=== PATIENT | female | born 1995 | race African-American/Black ===

== ENCOUNTER 2016-09-07 21:51 | Emergency (ER) | payer OTHER ==
[~2016-09-07 21:51] MED LIST: VENTAER INH; ZOFR4TAB3 SL
[2016-09-07 21:54] VITALS: BP 151/95; PULSE 86; RESP 16; TEMP 98.4; O2SAT 96
== END 2016-09-07 23:59 | disposition left against medical advice (07) ==
LOC: NED 21:51
DX: R68.89 Other general symptoms and signs (principal)
CPT/HCPCS: 99281

== ENCOUNTER 2016-09-10 23:09 | Emergency (ER) | payer OTHER ==
[~2016-09-10] VITALS: Ht 160 cm; Wt 98.3 kg
[2016-09-10 23:10] VITALS: BP 133/83; PULSE 96; RESP 16; TEMP 98.7; O2SAT 100
[2016-09-11] MEDS ORDERED: SODIUM CHLORIDE 0.9% FLUSH 10 ML FLUSH IV FLUSH PRN (01:00)
[2016-09-11] MEDS ORDERED: DICYCLOMINE HCL 20 MG/2 ML VIAL IM ONE (01:00)
[2016-09-11 01:11] LABS: BASOPHIL # 0.1 TH/MM3 (0-0.2); EOSINOPHIL # 0.2 TH/MM3 (0-0.4); EOSINOPHIL % 3.3 % (0.0-4.0); HEMATOCRIT 40.5 % (35.0-46.0); HEMO FLAGS DIFF FINAL; LYMPHOCYTE # 3.4 TH/MM3 (1.0-4.8); MEAN CELL VOLUME 78.4 FL (80.0-100.0); MEAN CORPUSCULAR HEMOGLOBIN 25.9 PG (27.0-34.0); MEAN CORPUSCULAR HGB CONC 33.1 % (32.0-36.0); MONO % 6.9 % (0.0-8.0); NEUT % 32.8 % (16.0-70.0); PLATELET COUNT 222 TH/MM3 (150-450); RED BLOOD COUNT 5.17 MIL/MM3 (4.00-5.30); RED CELL DISTRIBUTION WIDTH 14.8 % (11.6-17.2); WHITE BLOOD COUNT 6.1 TH/MM3 (4.0-11.0)
--- NOTE | 2016-09-11 01:17 | PD ---
HPI Chief Complaint: Chest Pain Time Seen by Provider: 00:54 Travel History International Travel<30 days: No Contact w/Intl Traveler<30days: No Traveled to known affect area: No History of Present Illness HPI This is a 21-year-old female who presents today with complaints of abdominal pain 2 days per patient also reports loose stools 2 days. She denies any fevers, chills. She denies any upper abdominal pain. She does give history that she has a crampy pain after eating. There is no dysuria, urgency. There is no vaginal discharge. She states she was concerned she may be however her urine test here is negative. PFSH Past Medical History Hx Anticoagulant Therapy: No Anemia: Yes Asthma: Yes Cardiovascular Problems: No Chemotherapy: No Cerebrovascular Accident: No Developmental Delay: No Diabetes: No Diminished Hearing: No Gastrointestinal Disorders: No Genitourinary: No Hypertension: Yes Musculoskeletal: No Neurologic: No Psychiatric: No Respiratory: Yes (Asthma) Immunizations Current: Yes Sickle Cell Disease: No Sleep Apnea: No PNEUMOCCOCAL Vaccine (Year): 1 ?: Unknown LMP: unknown : 3 Para: 2 Miscarriage: 0 : 0 Past Surgical History Section: Yes (x2) Gynecologic Surgery: Yes ( JULY 2012) Hysterectomy: No Social History Alcohol Use: No Tobacco Use: No Substance Use: No Allergies-Medications (Allergen,Severity, Reaction): Coded Allergies: No Known Allergies (Verified , 12/22/15) Reported Meds & Prescriptions Reported Meds & Active Scripts Active Macrobid (Nitrofurantoin Monohydrate Macrocrystals) 100 Mg Capsule 100 Mg PO BID Ventolin Hfa 18 GM Inh (Albuterol Sulfate) 90 Mcg/Act Aer 2 Puff INH Q4-6H PRN Review of Systems Except as stated in HPI: all other systems reviewed are Neg HENT: No: Headaches, Vertigo, Lightheadedness Cardiovascular: No: Chest Pain or Discomfort, Palpitations Respiratory: No: Cough, Shortness of Breath Gastrointestinal: Positive: Nausea, Diarrhea, Abdominal Pain (loose stools 2 episodes infraumbilical), No: Vomiting, Constipation Genitourinary: No: Frequency, Dysuria, Discharge, Vaginal Bleeding Musculoskeletal: No: Weakness, Pain Neurologic: No: Weakness, Dizziness Physical Exam Narrative GENERAL: Well-nourished, well-developed patient, in no acute respiratory distress. SKIN: Focused skin assessment warm/dry. HEAD: Normocephalic/atraumatic. EYES: No scleral icterus. No injection or drainage. NECK: Supple, trachea midline. No JVD or lymphadenopathy. CARDIOVASCULAR: Regular rate and rhythm without murmurs, gallops, or rubs. RESPIRATORY: Breath sounds equal bilaterally. No accessory muscle use. GASTROINTESTINAL: Abdomen soft, nontender on my examination. There is no distention. No pulsatile masses. MUSCULOSKELETAL: No cyanosis, or edema. NEUROLOGICAL: Awake and alert. Cranial nerves II through XII intact. Motor grossly within normal limits. Five out of 5 muscle strength in all muscle groups. Normal speech. Data Data Last Documented VS Vital Signs Date Time Temp Pulse Resp B/P Pulse Ox O2 Delivery O2 Flow Rate FiO2 09/10/16 23:10 98.7 96 16 133/83 100 Room Air Orders Complete Blood Count With Diff (09/11/16 00:54) Comprehensive Metabolic Panel (09/11/16 00:54) Lipase (09/11/16 00:54) Urinalysis - C+S If Indicated (09/11/16 00:54) Iv Access Insert/Monitor (09/11/16 00:54) Ecg Monitoring (09/11/16 00:54) Oximetry (09/11/16 00:54) Sodium Chloride 0.9% Flush (Ns Flush) (09/11/16 01:00) Dicyclomine Inj (Bentyl Inj) (09/11/16 01:00) Ed Urine Pregnancytest Poc (09/11/16 00:54) Urine Culture (09/11/16 01:00) Labs Laboratory Tests Test 09/11/16 01:00 White Blood Count 6.1 TH/MM3 Red Blood Count 5.17 MIL/MM3 Hemoglobin 13.4 GM/DL Hematocrit 40.5 % Mean Corpuscular Volume 78.4 FL Mean Corpuscular Hemoglobin 25.9 PG Mean Corpuscular Hemoglobin 33.1 % Concent Red Cell Distribution Width 14.8 % Platelet Count 222 TH/MM3 Mean Platelet Volume 8.8 FL Neutrophils (%) (Auto) 32.8 % Lymphocytes (%) (Auto) 56.0 % Monocytes (%) (Auto) 6.9 % Eosinophils (%) (Auto) 3.3 % Basophils (%) (Auto) 1.0 % Neutrophils # (Auto) 2.0 TH/MM3 Lymphocytes # (Auto) 3.4 TH/MM3 Monocytes # (Auto) 0.4 TH/MM3 Eosinophils # (Auto) 0.2 TH/MM3 Basophils # (Auto) 0.1 TH/MM3 CBC Comment DIFF FINAL Differential Comment Urine Color YELLOW Urine Turbidity HAZY Urine pH 6.0 Urine Specific [place] 1.034 Urine Protein 30 mg/dL Urine Glucose (UA) NEG mg/dL Urine Ketones NEG mg/dL Urine Occult Blood NEG Urine Nitrite NEG Urine Bilirubin NEG Urine Urobilinogen 4.0 MG/DL Urine Leukocyte Esterase LARGE Urine RBC 4 /hpf Urine WBC 33 /hpf Urine Squamous Epithelial 6 /hpf Cells Urine Bacteria RARE /hpf Urine Granular Casts 2 /lpf Urine Mucus FEW /lpf Microscopic Urinalysis Comment CULTURE INDICATED Sodium Level 138 MEQ/L Potassium Level 3.9 MEQ/L Chloride Level 103 MEQ/L Carbon Dioxide Level 27.2 MEQ/L Anion Gap 8 MEQ/L Blood Urea Nitrogen 10 MG/DL Creatinine 0.86 MG/DL Estimat Glomerular Filtration 101 ML/MIN Rate Random Glucose 90 MG/DL Calcium Level 9.3 MG/DL Total Bilirubin 0.5 MG/DL Aspartate Amino Transf 19 U/L (AST/SGOT) Alanine Aminotransferase 23 U/L (ALT/SGPT) Alkaline Phosphatase 80 U/L Total Protein 7.8 GM/DL Albumin 4.0 GM/DL Lipase 220 U/L [facility] Medical Decision Making Medical Screen Exam Complete: Yes Emergency Medical Condition: Yes Differential Diagnosis Gastroenteritis versus cystitis versus cholecystitis Narrative Course 21-year-old female presents today with points of lower bowel pain. Patient denied any dysuria urgency or frequency. Patient's urinalysis was positive for UTI. The rest of her labs appear within normal limits. The patient had a soft abdominal exam on my exam. She'll be discharged with a prescription for Macrobid. She'll also be instructed to have a bland diet until she feels better. Diagnosis Primary Impression: Urinary tract infection Additional Instructions: [place] diet, advance as tolerated. Med/Other Pt SpecificInfo: Prescription(s) given Scripts Nitrofurantoin Monohydrate Macrocrystals (Macrobid)100 Mg [id number] Mg PO BID #14 CAP Ref 0 Prov:Gaudencio Snow MD 09/11/16 Disposition: 01 DISCHARGE HOME Condition: Stable Gaudencio Snow MD Sep 11, 2016 01:17
[2016-09-11 01:21] LABS: BACTERIA, URINE RARE /hpf; BLOOD, URINE NEG (NEG); COMMENT (UR) CULTURE INDICATED; CULTURE IF INDICATED CULTURE INDICATED; GLUCOSE,URINE NEG (NEG); GRANULAR CAST, URINE 2 /lpf; KETONE, URINE NEG (NEG); MUCUS URINE FEW /lpf (OCC); NITRITE,URINE NEG (NEG); SQUAMOUS EPITHELIAL CELL URINE 6 /hpf (0-5); URINE COLOR YELLOW (YELLW/STRAW)
[2016-09-11 01:45] LABS: ALT (GPT) 23 U/L (10-53); ANION GAP 8 MEQ/L (5-15); AST (GOT) 19 U/L (15-37); BICARBONATE 27.2 MEQ/L (21.0-32.0); BLOOD UREA NITROGEN 10 MG/DL (7-18); CHLORIDE 103 MEQ/L (98-107); GLOMERULAR FILTRATION RATE 101 ML/MIN (>89); POTASSIUM 3.9 MEQ/L (3.5-5.1); SODIUM (NA) 138 MEQ/L (136-145)
[2016-09-11 01:47] LABS: ALKALINE PHOSPHATASE 80 U/L (45-117); TOTAL BILIRUBIN ADULT 0.5 MG/DL (0.2-1.0)
[2016-09-11] MEDS ORDERED: MACR100C2 PO (03:20)
== END 2016-09-11 04:08 | disposition home or self-care (01) ==
LOC: NEPE 23:09
DX: N39.0 Urinary tract infection, site not specified (principal); R11.0 Nausea; R19.7 Diarrhea, unspecified; D64.9 Anemia, unspecified; J45.909 Unspecified asthma, uncomplicated; I10 Essential (primary) hypertension; Z79.899 Other long term (current) drug therapy
CPT/HCPCS: 80053; 81001; 83690; 84703; 85025; 87086; 96372; 99284; J0500

== ENCOUNTER 2016-09-26 21:07 | Emergency (ER) | payer OTHER ==
[~2016-09-26] VITALS: Ht 160 cm; Wt 100.0 kg
[~2016-09-26 21:07] MED LIST changes: +MACR100C2 PO; -ZOFR4TAB3 SL
[2016-09-26 21:08] VITALS: BP 163/100; PULSE 98; RESP 16; TEMP 99; O2SAT 98
[2016-09-26] MEDS ORDERED: TRAM50TA PO (22:32)
[2016-09-26] MEDS ORDERED: ACYC800T PO (22:32)
--- NOTE | 2016-09-26 22:39 | PD ---
HPI Chief Complaint: Injury Time Seen by Provider: 22:20 Travel History International Travel<30 days: No Contact w/Intl Traveler<30days: No Traveled to known affect area: No History of Present Illness HPI The patient was seen and examined in the presence of the nurse. This patient complains of painful genital lesions. Denies fever or vaginal discharge. Does have history of STD. She is sexually active not using protection. No pelvic pain or vaginal bleeding. Symptoms severity is mild to moderate PFSH Past Medical History Hx Anticoagulant Therapy: No Anemia: Yes Asthma: Yes Cardiovascular Problems: No Chemotherapy: No Cerebrovascular Accident: No Developmental Delay: No Diabetes: No Diminished Hearing: No Gastrointestinal Disorders: No Genitourinary: No Hypertension: Yes Musculoskeletal: No Neurologic: No Psychiatric: No Immunizations Current: Yes Sickle Cell Disease: No Sleep Apnea: No PNEUMOCCOCAL Vaccine (Year): 1 ?: Unknown LMP: 08/13/16 : 3 Para: 2 Miscarriage: 0 : 0 Past Surgical History Section: Yes (x2) Gynecologic Surgery: Yes ( JULY 2012) Hysterectomy: No Social History Alcohol Use: No Tobacco Use: No Substance Use: No Allergies-Medications (Allergen,Severity, Reaction): Coded Allergies: No Known Allergies (Verified , 12/22/15) Reported Meds & Prescriptions Reported Meds & Active Scripts Active Macrobid (Nitrofurantoin Monohydrate Macrocrystals) 100 Mg Capsule 100 Mg PO BID Ventolin Hfa 18 GM Inh (Albuterol Sulfate) 90 Mcg/Act Aer 2 Puff INH Q4-6H PRN Review of Systems General / Constitutional: No: Fever HENT: No: Headaches Cardiovascular: No: Chest Pain or Discomfort Respiratory: No: Cough Physical Exam Narrative GASTROINTESTINAL: Abdomen soft, non-tender, nondistended. Positive bowel sounds. No hepato-splenomegaly, or palpable masses. No guarding. : External genitalia reveal several vesicular and ulcerative lesions on erythematous base No bleeding or discharge externally seen SKIN: Focused skin assessment reveals no rash or ulcers beyond the genital region. Skin is warm and dry. Palpation shows no induration or nodules. Data Data Last Documented VS Vital Signs Date Time Temp Pulse Resp B/P Pulse Ox O2 Delivery O2 Flow Rate FiO2 09/26/16 21:08 99.0 98 16 163/100 98 Room Air MDM Medical Decision Making Medical Screen Exam Complete: Yes Emergency Medical Condition: Yes Medical Record Reviewed: Yes Differential Diagnosis HSV, vaginitis, Narrative Course I have reviewed the patient's electronic medical record. Patient has had 2 C- sections prior Urine is positive Clinical exam suggests herpes so I prescribed one week of acyclovir Tylenol recommend for pain and given her status Should follow with [facility] for evaluation Of note I initially prescribed some tramadol but I have given her that prescription since she has been found to be Is not known how far along she is Diagnosis Primary Impression: HSV (herpes simplex virus) infection Additional Impression: Qualified Code: Z3A.10 - 10 weeks gestation of Additional Instructions: Follow-up with [facility] Med/Other Pt SpecificInfo: Prescription(s) given Scripts Tramadol 50 Mg Tab50 Mg PO Q6H PRN (PAIN) #20 TAB Ref 0 Prov:Mario Barillas MD 09/26/16 Acyclovir 800 Mg [id number] Mg PO TID #21 TAB Ref 0 Prov:Mario Barillas MD 09/26/16 Disposition: 01 DISCHARGE HOME Condition: Stable Mario Barillas MD Sep 26, 2016 22:39
== END 2016-09-26 22:55 | disposition home or self-care (01) ==
LOC: NEPD 21:07
DX: B00.9 Herpesviral infection, unspecified (principal); O26.891 Other specified pregnancy related conditions, first trimester; O16.1 Unspecified maternal hypertension, first trimester; I10 Essential (primary) hypertension; Z3A.10 10 weeks gestation of pregnancy
CPT/HCPCS: 84703; 99283

== ENCOUNTER 2016-10-02 21:51 | Emergency (ER) | payer OTHER ==
[~2016-10-02] VITALS: Ht 160 cm; Wt 90.0 kg
[~2016-10-02 21:51] MED LIST changes: +ACYC800T PO; +TRAM50TA PO
[2016-10-02 22:02] VITALS: BP 142/94; PULSE 91; RESP 15; TEMP 98.7; O2SAT 98
--- NOTE | 2016-10-02 23:16 | PD ---
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 She states that she is passing clots and having lower back discomfort. She also has been having nausea and vomiting. She denies any fevers, dysuria, or any other symptoms. Modifying Factors: None Associated Signs & Symptoms: and vaginal bleeding Risk Factors: None PFSH Past Medical History Hx Anticoagulant Therapy: No Anemia: Yes Asthma: Yes Cardiovascular Problems: No Chemotherapy: No Cerebrovascular Accident: No Developmental Delay: No Diabetes: No Diminished Hearing: No Gastrointestinal Disorders: No Genitourinary: No Hypertension: Yes Musculoskeletal: No Neurologic: No Psychiatric: No Immunizations Current: Yes Sickle Cell Disease: No Sleep Apnea: No Tetanus Vaccination: Unknown PNEUMOCCOCAL Vaccine (Year): 1 ?: LMP: 07/09/2016 : 4 Para: 3 Miscarriage: 0 : 0 Past Surgical History Section: Yes (x2) Gynecologic Surgery: Yes ( JULY 2012) Hysterectomy: No Social History Alcohol Use: No Tobacco Use: No Substance Use: No Allergies-Medications (Allergen,Severity, Reaction): Coded Allergies: No Known Allergies (Verified , 12/22/15) Reported Meds & Prescriptions Reported Meds & Active Scripts Active Acyclovir 800 Mg Tab 800 Mg PO TID Macrobid (Nitrofurantoin Monohydrate Macrocrystals) 100 Mg Capsule 100 Mg PO BID Ventolin Hfa 18 GM Inh (Albuterol Sulfate) 90 Mcg/Act Aer 2 Puff INH Q4-6H PRN Review of Systems Except as stated in HPI: all other systems reviewed are Neg Physical Exam Narrative GENERAL: Well-developed young -[place] female patient currently in mild distress. Awake and oriented 3. SKIN: Focused skin assessment warm/dry. HEAD: Atraumatic. Normocephalic. EYES: Pupils equal and round. No scleral icterus. No injection or drainage. ENT: No nasal bleeding or discharge. Mucous membranes pink and moist. NECK: Trachea midline. No JVD. CARDIOVASCULAR: Regular rate and rhythm. No murmur appreciated. RESPIRATORY: No accessory muscle use. Clear to auscultation. Breath sounds equal bilaterally. GASTROINTESTINAL: Abdomen soft, non-tender, nondistended. Hepatic and splenic margins not palpable. MUSCULOSKELETAL: No obvious deformities. No clubbing. No cyanosis. No edema. NEUROLOGICAL: Awake and alert. No obvious cranial nerve deficits. Motor grossly within normal limits. Normal speech. PSYCHIATRIC: Appropriate mood and affect; insight and judgment normal. Data Data Last Documented VS Vital Signs Date Time Temp Pulse Resp B/P (MAP) Pulse Ox O2 Delivery O2 Flow Rate FiO2 10/02/16 22:02 98.7 91 15 142/94 (110) 98 Room Air Orders Orders Beta Hcg (Quant/Titer) (10/02/16 23:10) Complete Blood Count With Diff (10/02/16 23:10) Comprehensive Metabolic Panel (10/02/16 23:10) Complete Rh (10/02/16 23:10) Urinalysis - C+S If Indicated (10/02/16 23:10) Urine Culture (10/02/16 23:35) Us Pelvis (Ques Pr/Ect)W Trans (10/03/16 23:13) Labs Laboratory Tests Test 10/02/16 23:35 10/02/16 23:45 Urine Color YELLOW Urine Turbidity HAZY Urine pH 7.0 Urine Specific [place] 1.023 Urine Protein TRACE mg/dL Urine Glucose (UA) NEG mg/dL Urine Ketones NEG mg/dL Urine Occult Blood NEG Urine Nitrite NEG Urine Bilirubin NEG Urine Urobilinogen 2.0 MG/DL Urine Leukocyte Esterase MOD Urine RBC 2 /hpf Urine WBC 18 /hpf Urine Squamous Epithelial Cells 5 /hpf Urine Bacteria RARE /hpf Microscopic Urinalysis Comment CULTURE INDICATED White Blood Count 6.0 TH/MM3 Red Blood Count 4.82 MIL/MM3 Hemoglobin 11.9 GM/DL Hematocrit 38.1 % Mean Corpuscular Volume 78.9 FL Mean Corpuscular Hemoglobin 24.8 PG Mean Corpuscular Hemoglobin Concent 31.4 % Red Cell Distribution Width 14.4 % Platelet Count 214 TH/MM3 Mean Platelet Volume 8.6 FL Neutrophils (%) (Auto) 35.6 % Lymphocytes (%) (Auto) 54.8 % Monocytes (%) (Auto) 5.7 % Eosinophils (%) (Auto) 3.2 % Basophils (%) (Auto) 0.7 % Neutrophils # (Auto) 2.1 TH/MM3 Lymphocytes # (Auto) 3.3 TH/MM3 Monocytes # (Auto) 0.3 TH/MM3 Eosinophils # (Auto) 0.2 TH/MM3 Basophils # (Auto) 0.0 TH/MM3 CBC Comment DIFF FINAL Differential Comment Blood Urea Nitrogen 8 MG/DL Creatinine 0.70 MG/DL Random Glucose 90 MG/DL Total Protein 7.2 GM/DL Albumin 3.7 GM/DL Calcium Level 8.8 MG/DL Alkaline Phosphatase 84 U/L Aspartate Amino Transf (AST/SGOT) 15 U/L Alanine Aminotransferase (ALT/SGPT) 20 U/L Total Bilirubin 0.4 MG/DL Sodium Level 140 MEQ/L Potassium Level 3.8 MEQ/L Chloride Level 107 MEQ/L Carbon Dioxide Level 26.6 MEQ/L Anion Gap 6 MEQ/L Estimat Glomerular Filtration Rate 128 ML/MIN Human Chorionic Gonadotropin, Quant 1598 MIU/ML MDM Medical Decision Making Medical Screen Exam Complete: Yes Emergency Medical Condition: Yes Medical Record Reviewed: Yes Interpretation(s) Laboratory Tests Test 10/02/16 23:35 10/02/16 23:45 Urine Turbidity HAZY (CLEAR) Urine Leukocyte Esterase MOD (NEG) Urine WBC 18 /hpf (0-5) Urine Bacteria RARE /hpf (NONE) Mean Corpuscular Volume 78.9 FL (80.0-100.0) Mean Corpuscular Hemoglobin 24.8 PG (27.0-34.0) Mean Corpuscular Hemoglobin Concent 31.4 % (32.0-36.0) Lymphocytes (%) (Auto) 54.8 % (9.0-44.0) Human Chorionic Gonadotropin, Quant 1598 MIU/ML (0-5) Differential Diagnosis Vaginal bleeding: Threatened AB versus ectopic versus menorrhagia Narrative Course Lab work shows hCG of 1500. She states that she just had her menses this past month. She has an ultrasound with possible early within the uterus although it is fairly early. Rh+. At this point, my plan would be to release her with follow-up to [facility] RN in 2 days for further evaluation with ultrasound and hCG. Return for any worsening in bleeding, pain, and as needed. The plan has been discussed with her and she states understanding. Diagnosis Primary Impression: Threatened in early Referrals: Ismael Swan MD 2 days Disposition: 01 DISCHARGE HOME Condition: Stable Janel Farr MD Oct 02, 2016 23:16
[2016-10-03 00:06] LABS: AUTOMATED NEUTROPHIL # 2.1 TH/MM3 (1.8-7.7); BASOPHIL % 0.7 % (0.0-2.0); EOSINOPHIL # 0.2 TH/MM3 (0-0.4); EOSINOPHIL % 3.2 % (0.0-4.0); HEMATOCRIT 38.1 % (35.0-46.0); HEMO FLAGS DIFF FINAL; LYMPH % 54.8 % (9.0-44.0); LYMPHOCYTE # 3.3 TH/MM3 (1.0-4.8); MEAN CELL VOLUME 78.9 FL (80.0-100.0); MEAN CORPUSCULAR HEMOGLOBIN 24.8 PG (27.0-34.0); MEAN CORPUSCULAR HGB CONC 31.4 % (32.0-36.0); MONO % 5.7 % (0.0-8.0); NEUT % 35.6 % (16.0-70.0); PLATELET COUNT 214 TH/MM3 (150-450); RED BLOOD COUNT 4.82 MIL/MM3 (4.00-5.30); RED CELL DISTRIBUTION WIDTH 14.4 % (11.6-17.2)
[2016-10-03 00:16] LABS: ALT (GPT) 20 U/L (10-53); ANION GAP 6 MEQ/L (5-15); AST (GOT) 15 U/L (15-37); BICARBONATE 26.6 MEQ/L (21.0-32.0); BLOOD UREA NITROGEN 8 MG/DL (7-18); CHLORIDE 107 MEQ/L (98-107); GLOMERULAR FILTRATION RATE 128 ML/MIN (>89); POTASSIUM 3.8 MEQ/L (3.5-5.1); SODIUM (NA) 140 MEQ/L (136-145)
[2016-10-03 00:17] LABS: BACTERIA, URINE RARE /hpf; BLOOD, URINE NEG (NEG); COMMENT (UR) CULTURE INDICATED; CULTURE IF INDICATED CULTURE INDICATED; GLUCOSE,URINE NEG (NEG); KETONE, URINE NEG (NEG); NITRITE,URINE NEG (NEG); SQUAMOUS EPITHELIAL CELL URINE 5 /hpf (0-5); URINE COLOR YELLOW (YELLW/STRAW)
[2016-10-03 00:33] LABS: ALKALINE PHOSPHATASE 84 U/L (45-117); BETA HCG QUANT 1598 MIU/ML (0-5); TOTAL BILIRUBIN ADULT 0.4 MG/DL (0.2-1.0)
--- NOTE | 2016-10-03 01:59 | RADRPT ---
EXAM DATE/TIME: 10/03/2016 01:10 [place] COMPARISON: No previous studies available for comparison. INDICATIONS : Bleeding. LAB(S): Beta-hC MEDICAL HISTORY : . Hypertension. Asthma. Anemia. SURGICAL HISTORY : section. ENCOUNTER: Initial ACUITY: 4-6 days PAIN SCORE: 0/10 LOCATION: Bilateral pelvis MEASUREMENTS: UTERUS: 8.2 x 5.6 x 4.8 cm ENDOMETRIAL STRIPE: 10 mm RIGHT OVARY: 4.1 x 2.1 x 1.5 cm LEFT OVARY: 4.1 x 3.4 x 3.3 cm FREE FLUID: No FINDINGS: UTERUS: The myometrium has homogeneous echotexture without mass.6 x 5 x 4 mm hypoechoic collection with echog enic ring within the uterine lining could be an early gestational sac. RIGHT OVARY: Ovary contains no mass or significant cystic lesion. LEFT OVARY: Ovary contains no mass with a solitary 2.5 cm significant cystic lesion. MISCELLANEOUS: No free fluid. CONCLUSION: 6 x 5 x 4 mm collection could be an early gestational sac within the uterine lining. Too small to com pletely characterize. Isaiah Mathur MD on October 03, 2016 at 1:54 Board Certified Radiologist. This report was verified electronically.
[2016-10-03] MEDS ORDERED: MACR100C2 PO (02:28)
== END 2016-10-03 02:52 | disposition home or self-care (01) ==
LOC: NEPE 21:51
DX: O20.0 Threatened abortion (principal); D64.9 Anemia, unspecified; J45.909 Unspecified asthma, uncomplicated; I10 Essential (primary) hypertension; Z79.899 Other long term (current) drug therapy
CPT/HCPCS: 76700; 76817; 80053; 81001; 84702; 85025; 87086; 99284

== ENCOUNTER 2016-10-22 20:10 | Emergency (ER) | payer OTHER ==
[~2016-10-22] VITALS: Ht 160 cm; Wt 100.0 kg
[~2016-10-22 20:10] MED LIST changes: -TRAM50TA PO
[2016-10-22 20:12] VITALS: BP 160/92; PULSE 97; RESP 18; TEMP 98.1; O2SAT 97
[2016-10-22] MEDS ORDERED: SODIUM CHLOR 0.9% 1000 ML INJ 1,000 ML IV ONE (20:30)
--- NOTE | 2016-10-22 20:44 | PD ---
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 She states the amount varies and at times she has clots. She is changing a pad 2-3 times a day. Denies any abdominal pain; has some mild lower cramping. Denies urinary symptoms. No fever or chills. She was diagnosed with IUP/ threatened at the end of September following a visit for vaginal bleeding. She has not yet followed up but has an appointment Wednesday (in 5 days ) with the [facility]. She has no other symptoms to report. PFSH Past Medical History Hx Anticoagulant Therapy: No Anemia: Yes Asthma: Yes Cardiovascular Problems: No Chemotherapy: No Cerebrovascular Accident: No Developmental Delay: No Diabetes: No Diminished Hearing: No Gastrointestinal Disorders: No Genitourinary: No Hypertension: Yes Musculoskeletal: No Neurologic: No Psychiatric: No Respiratory: Yes (ASTHMA) Immunizations Current: Yes Sickle Cell Disease: No Sleep Apnea: No Tetanus Vaccination: < 5 Years Influenza Vaccination: No PNEUMOCCOCAL Vaccine (Year): 1 ?: LMP: 07/09/16 : 4 Para: 3 Miscarriage: 0 : 0 Past Surgical History Section: Yes (x2) Gynecologic Surgery: Yes ( JULY 2012) Hysterectomy: No Social History Alcohol Use: No Tobacco Use: No Substance Use: No Allergies-Medications (Allergen,Severity, Reaction): Coded Allergies: No Known Allergies (Verified , 12/22/15) Reported Meds & Prescriptions Reported Meds & Active Scripts Active No Active Prescriptions or Reported Medications Review of Systems Except as stated in HPI: all other systems reviewed are Neg Physical Exam Narrative GENERAL: Well nourished female patient in no acute distress SKIN: Warm and dry. HEAD: Atraumatic. Normocephalic. EYES: Pupils equal and round. No scleral icterus. No injection or drainage. ENT: No nasal bleeding or discharge. Mucous membranes pink and moist. NECK: Trachea midline. No JVD. CARDIOVASCULAR: Regular rate and rhythm. RESPIRATORY: No accessory muscle use. Clear to auscultation. Breath sounds equal bilaterally. GASTROINTESTINAL: Abdomen soft, non-tender, nondistended. No guarding; no rebound tenderness. Hepatic and splenic margins not palpable. GENITOURINARY: Normal external genitalia without lesions or erythema. Vaginal vault with brown-red drainage. Cervical os was open 1cm with brown red drainage. No cervical motion tenderness. Uterus nontender and nonenlarged. Bilateral adnexa nontender without masses. MUSCULOSKELETAL: Extremities without clubbing, cyanosis, or edema. No obvious deformities. NEUROLOGICAL: Awake and alert. No obvious cranial nerve deficits. Motor grossly within normal limits. Five out of 5 muscle strength in the arms and legs. Normal speech. Data Data Last Documented VS Vital Signs Date Time Temp Pulse Resp B/P (MAP) Pulse Ox O2 Delivery O2 Flow Rate FiO2 10/22/16 20:26 16 10/22/16 20:12 98.1 97 160/92 (114) 97 Room Air Orders Orders Iv Access Insert/Monitor (10/22/16 20:25) Complete Blood Count With Diff (10/22/16 20:25) Beta Hcg (Quant/Titer) (10/22/16 20:25) Urinalysis - C+S If Indicated (10/22/16 20:25) Sodium Chlor 0.9% 1000 Ml Inj (Ns 1000 M (10/22/16 20:30) Wet Prep Profile (10/22/16 22:36) Gc And Chlamydia Pcr (10/22/16 22:36) Labs Laboratory Tests Test 10/22/16 20:40 10/22/16 21:10 10/22/16 23:10 White Blood Count 5.4 TH/MM3 Red Blood Count 5.00 MIL/MM3 Hemoglobin 12.7 GM/DL Hematocrit 39.6 % Mean Corpuscular Volume 79.1 FL Mean Corpuscular Hemoglobin 25.3 PG Mean Corpuscular Hemoglobin Concent 32.0 % Red Cell Distribution Width 14.6 % Platelet Count 202 TH/MM3 Mean Platelet Volume 8.2 FL Neutrophils (%) (Auto) 39.6 % Lymphocytes (%) (Auto) 47.3 % Monocytes (%) (Auto) 5.5 % Eosinophils (%) (Auto) 6.7 % Basophils (%) (Auto) 0.9 % Neutrophils # (Auto) 2.1 TH/MM3 Lymphocytes # (Auto) 2.6 TH/MM3 Monocytes # (Auto) 0.3 TH/MM3 Eosinophils # (Auto) 0.4 TH/MM3 Basophils # (Auto) 0.1 TH/MM3 CBC Comment DIFF FINAL Differential Comment Human Chorionic Gonadotropin, Quant 222 MIU/ML Urine Color YELLOW Urine Turbidity HAZY Urine pH 7.5 Urine Specific [place] 1.021 Urine Protein TRACE mg/dL Urine Glucose (UA) NEG mg/dL Urine Ketones NEG mg/dL Urine Occult Blood MOD Urine Nitrite NEG Urine Bilirubin NEG Urine Urobilinogen 4.0 MG/DL Urine Leukocyte Esterase SMALL Urine RBC 2 /hpf Urine WBC 7 /hpf Urine Squamous Epithelial Cells 1 /hpf Urine Bacteria RARE /hpf Urine Mucus FEW /lpf Microscopic Urinalysis Comment CULT NOT INDICATED Chlamydia trachomatis DNA (PCR) NOT DETECTED Neisseria gonorrhoeae DNA (PCR) NOT DETECTED MDM Medical Decision Making Medical Screen Exam Complete: Yes Emergency Medical Condition: Yes Medical Record Reviewed: Yes Differential Diagnosis threatened versus missed versus menses Narrative Course 21 year old female presents to the ED for evaluation of persistent vaginal bleeding. Pt appears well; abdominal exam is benign. She does have brown red drainage in her vaginal vault with an open cervical os. Pt is RH+ in review of previous lab work. Repeat beta is 222. HGB is 12.7. At this point, there is no need for further emergent work up. Pt will be discharged to keep her appointment at [facility]. I have discussed the findings with her and she verbalizes understanding. She agrees to return immediately with any acute worsening of symptoms Diagnosis Primary Impression: Vaginal bleeding Additional Impression: Missed Referrals: Iso Coordinator Primary Care Physician Patient Instructions: General Instructions, Miscarriage (ED) Additional Instructions: Keep your appointment as scheduled with the [facility] Return immediately with any acute worsening of symptoms Med/Other Pt SpecificInfo: No Change to Meds Scripts No Active Prescriptions or Reported Meds Disposition: 01 DISCHARGE HOME Condition: Stable Geena George JOHN Oct 22, 2016 20:44
[2016-10-22 20:54] LABS: AUTOMATED NEUTROPHIL # 2.1 TH/MM3 (1.8-7.7); BASOPHIL # 0.1 TH/MM3 (0-0.2); BASOPHIL % 0.9 % (0.0-2.0); EOSINOPHIL # 0.4 TH/MM3 (0-0.4); EOSINOPHIL % 6.7 % (0.0-4.0); HEMATOCRIT 39.6 % (35.0-46.0); HEMO FLAGS DIFF FINAL; LYMPH % 47.3 % (9.0-44.0); LYMPHOCYTE # 2.6 TH/MM3 (1.0-4.8); MEAN CELL VOLUME 79.1 FL (80.0-100.0); MEAN CORPUSCULAR HEMOGLOBIN 25.3 PG (27.0-34.0); MONO % 5.5 % (0.0-8.0); NEUT % 39.6 % (16.0-70.0); PLATELET COUNT 202 TH/MM3 (150-450); RED CELL DISTRIBUTION WIDTH 14.6 % (11.6-17.2); WHITE BLOOD COUNT 5.4 TH/MM3 (4.0-11.0)
[2016-10-22 21:25] LABS: BETA HCG QUANT 222 MIU/ML (0-5)
[2016-10-22 21:31] LABS: BACTERIA, URINE RARE /hpf; BLOOD, URINE MOD (NEG); COMMENT (UR) CULT NOT INDICATED; CULTURE IF INDICATED CULT NOT INDICATED; GLUCOSE,URINE NEG (NEG); KETONE, URINE NEG (NEG); MUCUS URINE FEW /lpf (OCC); NITRITE,URINE NEG (NEG); PH, URINE 7.5 (5.0-8.5); SQUAMOUS EPITHELIAL CELL URINE 1 /hpf (0-5); URINE COLOR YELLOW (YELLW/STRAW)
[2016-10-23 05:40] LABS: CHLAMYDIA PCR NOT DETECTED (NOT DETECT); NEISSERIA PCR NOT DETECTED (NOT DETECT)
== END 2016-10-23 04:51 | disposition home or self-care (01) ==
LOC: NEPD 20:10
DX: O02.1 Missed abortion (principal); O99.011 Anemia complicating pregnancy, first trimester; J45.909 Unspecified asthma, uncomplicated; O16.1 Unspecified maternal hypertension, first trimester
CPT/HCPCS: 81001; 84702; 85025; 87491; 87591; 96360; 99284; J7030; 87210

== ENCOUNTER 2017-02-10 17:57 | Emergency (ER) | payer OTHER ==
[~2017-02-10] VITALS: Ht 160 cm; Wt 90.9 kg
[2017-02-10 17:59] VITALS: BP 146/97; PULSE 111; RESP 18; TEMP 98.6; O2SAT 96
[2017-02-10] MEDS ORDERED: SODIUM CHLOR 0.9% 1000 ML INJ 1,000 ML IV ONE (18:30)
[2017-02-10] MEDS ORDERED: SODIUM CHLORIDE 0.9% FLUSH 10 ML FLUSH IVF PRN (18:30)
--- NOTE | 2017-02-10 18:31 | PD ---
HPI Chief Complaint: General Weakness Time Seen by Provider: 18:13 Travel History International Travel<30 days: No Contact w/Intl Traveler<30days: No Traveled to known affect area: No History of Present Illness HPI Patient is a 21-year-old female with a history of asthma presents emergency Department with generalized weakness coughing congestion and body aches for the past few hours. Denies any fevers, denies any abdominal pain to me though she did state to triage that she has a left lower quadrant pain. Eyes any vaginal bleeding vaginal discharge diarrhea constipation nausea or vomiting. states she is feeling very rundown and weak to the point where she doesn't think she' ll be able to walk. States symptoms are severe, for the past few hours, rapidly worsening, associated signs symptoms as above. PFSH Past Medical History Hx Anticoagulant Therapy: No Anemia: Yes Asthma: Yes Cardiovascular Problems: Yes (HTN) Chemotherapy: No Cerebrovascular Accident: No Developmental Delay: No Diabetes: No Diminished Hearing: No Gastrointestinal Disorders: No Genitourinary: No Hypertension: Yes Musculoskeletal: No Neurologic: No Psychiatric: No Respiratory: Yes (asthma) Immunizations Current: Yes Sickle Cell Disease: No Sleep Apnea: No PNEUMOCCOCAL Vaccine (Year): 1 ?: Unknown LMP: beginning of January : 4 Para: 3 Miscarriage: 0 : 0 Past Surgical History Section: Yes (x2) Gynecologic Surgery: Yes ( JULY 2012) Hysterectomy: No Social History Alcohol Use: No Tobacco Use: No Substance Use: No Allergies-Medications (Allergen,Severity, Reaction): Coded Allergies: No Known Allergies (Verified , 12/22/15) Reported Meds & Prescriptions Reported Meds & Active Scripts Active Keflex (Cephalexin) 500 Mg Capsule 500 Mg PO QID 3 Days Review of Systems Except as stated in HPI: all other systems reviewed are Neg Physical Exam Narrative GENERAL: Well-developed well-nourished no obvious distress, appears uncomfortable and somnolent, SKIN: Focused skin assessment warm/dry. HEAD: Atraumatic. Normocephalic. EYES: Pupils equal and round. No scleral icterus. No injection or drainage. ENT: No nasal bleeding or discharge. Mucous membranes pink and moist. TMs clear bilaterally, oropharynx clear moist. NECK: Trachea midline. No JVD. CARDIOVASCULAR: Regular rate and rhythm. No murmur appreciated. RESPIRATORY: No accessory muscle use. Clear to auscultation. Breath sounds equal bilaterally. GASTROINTESTINAL: Abdomen soft, non-tender, nondistended. Hepatic and splenic margins not palpable. MUSCULOSKELETAL: No obvious deformities. No clubbing. No cyanosis. No edema. NEUROLOGICAL: Awake and alert. No obvious cranial nerve deficits. Motor grossly within normal limits. Normal speech. PSYCHIATRIC: Appropriate mood and affect; insight and judgment normal. Data Data Last Documented VS Vital Signs Date Time Temp Pulse Resp B/P (MAP) Pulse Ox O2 Delivery O2 Flow Rate FiO2 02/10/17 20:56 02/10/17 17:59 98.6 111 18 96 Room Air Orders Orders Urinalysis - C+S If Indicated (02/10/17 18:20) Ed Urine Pregnancytest Poc (02/10/17 18:20) Electrocardiogram (02/10/17 18:30) Basic Metabolic Panel (Bmp) (02/10/17 18:30) Complete Blood Count With Diff (02/10/17 18:30) Troponin I (02/10/17 18:30) Ecg Monitoring (02/10/17 18:30) Iv Access Insert/Monitor (02/10/17 18:30) Oximetry (02/10/17 18:30) Oxygen Administration (02/10/17 18:30) Sodium Chloride 0.9% Flush (Ns Flush) (02/10/17 18:30) Chest, Pa & Lat (02/10/17 18:30) Sodium Chlor 0.9% 1000 Ml Inj (Ns 1000 M (02/10/17 18:30) Influenzae A/B Antigen (02/10/17 18:30) Urine Culture (02/10/17 19:08) Ed Discharge Order (02/10/17 20:52) Labs Laboratory Tests Test 02/10/17 19:08 White Blood Count 6.3 TH/MM3 Red Blood Count 5.50 MIL/MM3 Hemoglobin 13.9 GM/DL Hematocrit 42.8 % Mean Corpuscular Volume 77.9 FL Mean Corpuscular Hemoglobin 25.2 PG Mean Corpuscular Hemoglobin Concent 32.4 % Red Cell Distribution Width 15.1 % Platelet Count 241 TH/MM3 Mean Platelet Volume 8.8 FL Neutrophils (%) (Auto) 49.0 % Lymphocytes (%) (Auto) 43.0 % Monocytes (%) (Auto) 6.3 % Eosinophils (%) (Auto) 0.9 % Basophils (%) (Auto) 0.8 % Neutrophils # (Auto) 3.1 TH/MM3 Lymphocytes # (Auto) 2.7 TH/MM3 Monocytes # (Auto) 0.4 TH/MM3 Eosinophils # (Auto) 0.1 TH/MM3 Basophils # (Auto) 0.1 TH/MM3 CBC Comment DIFF FINAL Differential Comment Urine Color YELLOW Urine Turbidity HAZY Urine pH 6.0 Urine Specific [place] 1.022 Urine Protein 30 mg/dL Urine Glucose (UA) NEG mg/dL Urine Ketones NEG mg/dL Urine Occult Blood NEG Urine Nitrite NEG Urine Bilirubin NEG Urine Urobilinogen LESS THAN 2.0 MG/DL Urine Leukocyte Esterase MOD Urine RBC 3 /hpf Urine WBC 19 /hpf Urine Squamous Epithelial Cells 6 /hpf Urine Mucus MANY /lpf Microscopic Urinalysis Comment CULTURE INDICATED Blood Urea Nitrogen 6 MG/DL Creatinine 0.81 MG/DL Random Glucose 85 MG/DL Calcium Level 9.3 MG/DL Sodium Level 141 MEQ/L Potassium Level 3.5 MEQ/L Chloride Level 106 MEQ/L Carbon Dioxide Level 24.0 MEQ/L Anion Gap 11 MEQ/L Estimat Glomerular Filtration Rate 108 ML/MIN Troponin I LESS THAN 0.02 NG/ML MDM Medical Decision Making Medical Screen Exam Complete: Yes Emergency Medical Condition: Yes Interpretation(s) EKG shows normal sinus rhythm normal axis normal R-wave progression. No concerning ST segment changes. Intervals within normal limits. This is normal EKG. Differential Diagnosis Viral syndrome, , dehydration, pneumonia. Narrative Course Patient roomed in emergency department, does appear somewhat run down, had a significant turnaround with a liter of normal saline. Mother in the room with her on revisit, discussed results including negative test, minimal criteria for urinary tract infection. Labs otherwise reassuring. She is feeling much better would like to go home. Discussed empiric antibiotics follow -up with a primary care physician and return to ED criteria. Diagnosis Primary Impression: Generalized weakness Additional Impression: UTI (urinary tract infection) Med/Other Pt SpecificInfo: Prescription(s) given Scripts Cephalexin (Keflex) 500 Mg Capsule 500 MG PO QID for Infection for 3 Days, CAP 0 Refills Prov: Kenneth Brown MD 02/10/17 Disposition: 01 DISCHARGE HOME Condition: Stable Kenneth Brown MD Feb 10, 2017 18:31
[2017-02-10 19:41] LABS: AUTOMATED NEUTROPHIL # 3.1 TH/MM3 (1.8-7.7); BASOPHIL # 0.1 TH/MM3 (0-0.2); BASOPHIL % 0.8 % (0.0-2.0); EOSINOPHIL # 0.1 TH/MM3 (0-0.4); EOSINOPHIL % 0.9 % (0.0-4.0); HEMATOCRIT 42.8 % (35.0-46.0); HEMOGLOBIN 13.9 GM/DL (11.6-15.3); LYMPHOCYTE # 2.7 TH/MM3 (1.0-4.8); MEAN CELL VOLUME 77.9 FL (80.0-100.0); MEAN CORPUSCULAR HEMOGLOBIN 25.2 PG (27.0-34.0); MEAN CORPUSCULAR HGB CONC 32.4 % (32.0-36.0); MEAN PLATELET VOLUME 8.8 FL (7.0-11.0); MONO % 6.3 % (0.0-8.0); MONOCYTE # 0.4 TH/MM3 (0-0.9); PLATELET COUNT 241 TH/MM3 (150-450); RED CELL DISTRIBUTION WIDTH 15.1 % (11.6-17.2); WHITE BLOOD COUNT 6.3 TH/MM3 (4.0-11.0)
[2017-02-10 19:48] LABS: BILIRUBIN, URINE NEG (NEG); BLOOD, URINE NEG (NEG); GLUCOSE,URINE NEG (NEG); KETONE, URINE NEG (NEG); MUCUS URINE MANY /lpf (OCC); NITRITE,URINE NEG (NEG); SQUAMOUS EPITHELIAL CELL URINE 6 /hpf (0-5); URINE COLOR YELLOW (YELLW/STRAW); URINE LEUKOCYTE ESTERASE MOD (NEG)
--- NOTE | 2017-02-10 20:08 | RADRPT ---
EXAM DATE/TIME: 02/10/2017 19:50 [facility] COMPARISON: CT ABDOMEN & PELVIS W CONTRAST, July 26, 2014, 17:43. CHEST SINGLE AP, Decem 2013, 21:00. INDICATIONS : Chest pain. MEDICAL HISTORY : None. SURGICAL HISTORY : None. ENCOUNTER: Initial ACUITY: 2 days PAIN SCORE: 10/10 LOCATION: middle chest. FINDINGS: The lungs are clear without infiltrate, nodule, or mass. There is no appreciable pleural effusion fo r technique. Heart and mediastinum are unremarkable. Increased density is present overlapping the ri ght lower chest but immediately correspond to an area of eventration of the right hemidiaphragm ident ified by CT examination with parts of the liver protruding at this site. CONCLUSION: No acute cardiopulmonary disease. Jesse Oates MD on February 10, 2017 at 20:04 Board Certified Radiologist. This report was verified electronically.
[2017-02-10 20:20] LABS: BLOOD UREA NITROGEN 6 MG/DL (7-18); CALCIUM 9.3 MG/DL (8.5-10.1); CHLORIDE 106 MEQ/L (98-107); CREATININE 0.81 MG/DL (0.50-1.00); GLOMERULAR FILTRATION RATE 108 ML/MIN (>89); GLUCOSE,RANDOM 85 MG/DL (74-106); SODIUM (NA) 141 MEQ/L (136-145)
[2017-02-10 20:23] LABS: TROPONIN I LESS THAN 0.02 NG/ML (0.02-0.05)
[2017-02-10] MEDS ORDERED: CEPH-460 PO (20:45)
--- NOTE | 2017-02-12 23:37 | EKG ---
Date Performed: 02/10/2017 Time Performed: 19:19:38 PTAGE: 21 years EKG: Sinus rhythm NORMAL ECG PREVIOUS TRACING : 09/20/2015 00.07 DOCTOR: Lorenzo Pickens Interpretating Date/Time 02/12/2017 23:36:06
== END 2017-02-10 20:56 | disposition home or self-care (01) ==
LOC: NEPD 17:57
DX: N39.0 Urinary tract infection, site not specified (principal); R53.1 Weakness; I10 Essential (primary) hypertension; J45.909 Unspecified asthma, uncomplicated
CPT/HCPCS: 71046; 80048; 81001; 84484; 84703; 85025; 87086; 87804; 93005; 99285; J7030

== ENCOUNTER 2017-05-23 16:22 | Emergency (ER) | payer OTHER ==
[~2017-05-23] VITALS: Ht 160 cm; Wt 95.0 kg
[~2017-05-23 16:22] MED LIST changes: -ACYC800T PO; +CEPH-460 PO; -MACR100C2 PO; -VENTAER INH
[2017-05-23 16:30] VITALS: BP 151/99; PULSE 82; RESP 18; TEMP 98.7; O2SAT 99
== END 2017-05-23 22:21 | disposition left against medical advice (07) ==
LOC: NED 16:22
DX: Z04.1 Encounter for examination and observation following transport accident (principal); Z53.21 Procedure and treatment not carried out due to patient leaving prior to being seen by health care provider
CPT/HCPCS: 99281

== ENCOUNTER 2017-06-02 15:33 | Emergency (ER) | payer OTHER ==
[2017-06-02] MEDS ORDERED: IOHEXOL 350 MG/ML 10 ML VIAL (for RAD DIAG) IVCONTRAST ONE (15:34)
[2017-06-02 15:53] VITALS: BP 162/95; PULSE 86; RESP 16; TEMP 98.4; O2SAT 97
[2017-06-02] MEDS ORDERED: SODIUM CHLOR 0.9% 1000 ML INJ 1,000 ML IV SCH (16:38)
[2017-06-02] MEDS ORDERED: KETOROLAC TROMETHAMINE 30 MG/ML (IVP) VIAL IVP ONE (16:45)
[2017-06-02] MEDS ORDERED: SODIUM CHLORIDE 0.9% FLUSH 10 ML FLUSH IV FLUSH PRN (16:45)
[2017-06-02] MEDS ORDERED: ONDANSETRON HCL 4 MG/2 ML VIAL IVP ONE (16:45)
[2017-06-02 17:31] LABS: AUTOMATED NEUTROPHIL # 1.9 TH/MM3 (1.8-7.7); BASOPHIL % 0.9 % (0.0-2.0); EOSINOPHIL # 0.1 TH/MM3 (0-0.4); EOSINOPHIL % 2.8 % (0.0-4.0); HEMATOCRIT 42.7 % (35.0-46.0); HEMOGLOBIN 13.9 GM/DL (11.6-15.3); LYMPH % 50.6 % (9.0-44.0); LYMPHOCYTE # 2.5 TH/MM3 (1.0-4.8); MEAN CORPUSCULAR HEMOGLOBIN 25.3 PG (27.0-34.0); MEAN CORPUSCULAR HGB CONC 32.5 % (32.0-36.0); MONO % 6.9 % (0.0-8.0); MONOCYTE # 0.3 TH/MM3 (0-0.9); NEUT % 38.8 % (16.0-70.0); PLATELET COUNT 215 TH/MM3 (150-450); RED BLOOD COUNT 5.47 MIL/MM3 (4.00-5.30); RED CELL DISTRIBUTION WIDTH 15.3 % (11.6-17.2); WHITE BLOOD COUNT 4.9 TH/MM3 (4.0-11.0)
[2017-06-02 17:45] LABS: ALBUMIN 4.3 GM/DL (3.4-5.0); ALT (GPT) 21 U/L (10-53); AST (GOT) 22 U/L (15-37); BICARBONATE 24.5 MEQ/L (21.0-32.0); BLOOD UREA NITROGEN 6 MG/DL (7-18); CALCIUM 9.2 MG/DL (8.5-10.1); CHLORIDE 109 MEQ/L (98-107); CREATININE 0.78 MG/DL (0.50-1.00); GLOMERULAR FILTRATION RATE 113 ML/MIN (>89); GLUCOSE,RANDOM 78 MG/DL (74-106); SODIUM (NA) 141 MEQ/L (136-145)
[2017-06-02 17:47] LABS: ALKALINE PHOSPHATASE 73 U/L (45-117); TOTAL PROTEIN 7.8 GM/DL (6.4-8.2)
[2017-06-02 18:03] LABS: BACTERIA, URINE OCC /hpf; BILIRUBIN, URINE NEG (NEG); BLOOD, URINE NEG (NEG); GLUCOSE,URINE NEG (NEG); KETONE, URINE TRACE mg/dL (NEG); MUCUS URINE MOD /lpf (OCC); NITRITE,URINE NEG (NEG); PH, URINE 7.5 (5.0-8.5); RENAL EPITHELIAL CELLS 1 /hpf; SQUAMOUS EPITHELIAL CELL URINE 14 /hpf (0-5); URINE COLOR YELLOW (YELLW/STRAW); URINE LEUKOCYTE ESTERASE MOD (NEG)
--- NOTE | 2017-06-02 18:26 | PD ---
HPI Chief Complaint: GI Complaint Time Seen by Provider: 16:36 Travel History International Travel<30 days: No Contact w/Intl Traveler<30days: No Traveled to known affect area: No History of Present Illness HPI 21-year-old female presents to the emergency department with complaint of right lower abdominal pain, back pain 2 days. Denies dysuria, urinary frequency, hematuria. Denies abnormal vaginal discharge, odor. Reports nausea and vomiting and vomited prior to arrival to the ER today. Denies fevers. Reports being sexually active with one partner. Denies risk of STD/STI. Last menstrual period was in February. Her bedside urine is negative. Denies contraception is her condom use. History of C-sections 2. Otherwise denies other abdominal surgeries. No known aggravating or relieving factors. Rates pain 5/10. Describes it as a pressure. Has been taking Tylenol for symptom management with no relief. No primary care provider. No known allergies. History of asthma. Has no other medical complaints. No other modifying factors or associated signs and symptoms. PFSH Past Medical History Hx Anticoagulant Therapy: No Anemia: Yes Asthma: Yes Cardiovascular Problems: Yes (HTN) Chemotherapy: No Cerebrovascular Accident: No Developmental Delay: No Diabetes: No Diminished Hearing: No Gastrointestinal Disorders: No Genitourinary: No Hypertension: Yes Musculoskeletal: No Neurologic: No Psychiatric: No Respiratory: Yes (asthma) Immunizations Current: Yes Sickle Cell Disease: No Sleep Apnea: No Tetanus Vaccination: < 5 Years PNEUMOCCOCAL Vaccine (Year): 1 ?: Not : 4 Para: 3 Miscarriage: 0 : 0 Past Surgical History Section: Yes (x2) Gynecologic Surgery: Yes ( JULY 2012) Hysterectomy: No Social History Alcohol Use: No Tobacco Use: No Substance Use: No Allergies-Medications (Allergen,Severity, Reaction): Coded Allergies: No Known Allergies (Verified Allergy, Unknown, 06/02/17) Reported Meds & Prescriptions Reported Meds & Active Scripts Active Doxycycline Hyclate 100 Mg Cap 100 Mg PO BID Keflex (Cephalexin) 500 Mg Cap 500 Mg PO Q12H 7 Days Review of Systems Except as stated in HPI: all other systems reviewed are Neg Physical Exam Narrative GENERAL: Well-nourished, well-developed black female patient, in no acute distress; afebrile, nontoxic-appearing SKIN: Warm and dry. HEAD: Atraumatic. Normocephalic. EYES: Pupils equal and round. No scleral icterus. No injection or drainage. ENT: Mucous membranes pink and moist. NECK: Trachea midline. No lymphadenopathy. CARDIOVASCULAR: Regular rate and rhythm. No murmur appreciated. RESPIRATORY: No accessory muscle use. Clear to auscultation. Breath sounds equal bilaterally. GASTROINTESTINAL: Abdomen soft, tenderness to right lower quadrant, nondistended. Bilateral pelvic region nontender to palpation. Hepatic and splenic margins not palpable. No guarding, rigidity, rebound tenderness. PELVIC: Exam done in the presence of a nurse. Speculum exam reveals edematous and nonerythematous cervix with creamy white, mucopurulent, foul-smelling discharge. Bimanual exam reveals no palpable masses or adnexa tenderness, no uterine tenderness. No cervical motion tenderness. BACK: No CVA tenderness. MUSCULOSKELETAL: No obvious deformities. No clubbing. No cyanosis. No edema. NEUROLOGICAL: Awake and alert. No obvious cranial nerve deficits. Motor grossly within normal limits. Normal speech. PSYCHIATRIC: Appropriate mood and affect; insight and judgment normal. Data Data Last Documented VS Vital Signs Date Time Temp Pulse Resp B/P (MAP) Pulse Ox O2 Delivery O2 Flow Rate FiO2 06/02/17 15:53 98.4 86 16 162/95 (117) 97 Orders Orders Complete Blood Count With Diff (06/02/17 16:38) Comprehensive Metabolic Panel (06/02/17 16:38) Lipase (06/02/17 16:38) Urinalysis - C+S If Indicated (06/02/17 16:38) Iv Access Insert/Monitor (06/02/17 16:38) Ondansetron Inj (Zofran Inj) (06/02/17 16:45) Sodium Chlor 0.9% 1000 Ml Inj (Ns 1000 M (06/02/17 16:38) Sodium Chloride 0.9% Flush (Ns Flush) (06/02/17 16:45) Ketorolac Inj (Toradol Inj) (06/02/17 16:45) Ed Urine Pregnancytest Poc (06/02/17 16:38) Gc And Chlamydia Pcr (06/02/17 16:38) Wet Prep Profile (06/02/17 16:38) Ct Abd/Pel W Iv Contrast(Rout) (06/02/17 16:47) Urine Culture (06/02/17 16:55) Ceftriaxone Inj (Rocephin Inj) (06/02/17 18:30) Azithromycin Powd Pack (Zithromax Powd P (06/02/17 18:30) Iohexol 350 Inj (Omnipaque 350 Inj) (06/02/17 15:34) Ed Discharge Order (06/02/17 20:02) Labs Laboratory Tests Test 06/02/17 16:55 06/02/17 18:15 White Blood Count 4.9 TH/MM3 Red Blood Count 5.47 MIL/MM3 Hemoglobin 13.9 GM/DL Hematocrit 42.7 % Mean Corpuscular Volume 78.0 FL Mean Corpuscular Hemoglobin 25.3 PG Mean Corpuscular Hemoglobin Concent 32.5 % Red Cell Distribution Width 15.3 % Platelet Count 215 TH/MM3 Mean Platelet Volume 9.0 FL Neutrophils (%) (Auto) 38.8 % Lymphocytes (%) (Auto) 50.6 % Monocytes (%) (Auto) 6.9 % Eosinophils (%) (Auto) 2.8 % Basophils (%) (Auto) 0.9 % Neutrophils # (Auto) 1.9 TH/MM3 Lymphocytes # (Auto) 2.5 TH/MM3 Monocytes # (Auto) 0.3 TH/MM3 Eosinophils # (Auto) 0.1 TH/MM3 Basophils # (Auto) 0.0 TH/MM3 CBC Comment DIFF FINAL Differential Comment Urine Color YELLOW Urine Turbidity HAZY Urine pH 7.5 Urine Specific [place] 1.020 Urine Protein TRACE mg/dL Urine Glucose (UA) NEG mg/dL Urine Ketones TRACE mg/dL Urine Occult Blood NEG Urine Nitrite NEG Urine Bilirubin NEG Urine Urobilinogen 4.0 MG/DL Urine Leukocyte Esterase MOD Urine RBC 3 /hpf Urine WBC 28 /hpf Urine Squamous Epithelial Cells 14 /hpf Urine Renal Epithelial Cells 1 /hpf Urine Bacteria OCC /hpf Urine Mucus MOD /lpf Microscopic Urinalysis Comment CULTURE INDICATED Blood Urea Nitrogen 6 MG/DL Creatinine 0.78 MG/DL Random Glucose 78 MG/DL Total Protein 7.8 GM/DL Albumin 4.3 GM/DL Calcium Level 9.2 MG/DL Alkaline Phosphatase 73 U/L Aspartate Amino Transf (AST/SGOT) 22 U/L Alanine Aminotransferase (ALT/SGPT) 21 U/L Total Bilirubin 1.0 MG/DL Sodium Level 141 MEQ/L Potassium Level 3.7 MEQ/L Chloride Level 109 MEQ/L Carbon Dioxide Level 24.5 MEQ/L Anion Gap 8 MEQ/L Estimat Glomerular Filtration Rate 113 ML/MIN Lipase 142 U/L Clue Cells (Wet Prep) NONE SEEN Vaginal Trichomonas (Wet Prep) NONE SEEN Vaginal Yeast (Wet Prep) NONE SEEN Chlamydia trachomatis DNA (PCR) NOT DETECTED Neisseria gonorrhoeae DNA (PCR) NOT DETECTED MDM Medical Decision Making Medical Screen Exam Complete: Yes Emergency Medical Condition: Yes Medical Record Reviewed: Yes Differential Diagnosis PID, UTI, pyelonephritis, appendicitis, chlamydia, gonorrhea, trichomonas, BV, vaginal yeast, cervicitis Narrative Course 21-year-old female with right lower quadrant abdominal pain, low back pain, vomiting 2 days. Patient is afebrile and nontoxic-appearing. She denies fevers. CBC, CMP, lipase, urinalysis, UPT, wet prep, chlamydia, gonorrhea, CT abdomen/pelvis ordered. IV fluids, Toradol, Zofran ordered. UPT negative. 1824: Urinalysis with signs of infection. Patient has foul-smelling mucus purulent discharge on pelvic exam and edematous cervix. Rocephin 1 g IV and azithromycin ordered for UTI and empirical treatment of cervicitis. 185: CBC unremarkable. CMP unremarkable. Lipase 142. Clue cells, vaginal trichomonas, vaginal yeast negative. Vomiting gonorrhea pending, but the patient has been empirically treated in the ER. 1899: Report given to Sanket Braden PA-C at change of shift. See his note for final patient disposition. CT abdomen/pelvis pending. Diagnosis Primary Impression: Cervicitis Additional Impression: Urinary tract infection Qualified Codes: N39.0 - Urinary tract infection, site not specified Med/Other Pt SpecificInfo: Prescription(s) given Scripts Doxycycline Hyclate (Doxycycline Hyclate) 100 Mg Cap 100 MG PO BID for Infection, #20 CAP 0 Refills Prov: Kenneth Brown MD 06/02/17 Cephalexin (Keflex) 500 Mg Cap 500 MG PO Q12H for Infection for 7 Days, #14 CAP 0 Refills Prov: Jeanna Guzman 06/02/17 Jeanna Guzman Jun 02, 2017 18:26
[2017-06-02] MEDS ORDERED: AZITHROMYCIN PWD FOR SUSP 1 GM PACKET PO ONE (18:30)
[2017-06-02] MEDS ORDERED: cefTRIAXone INJ 1,000 MG in SODIUM CHLORIDE 0.9% INJ 100 ML IV ONE (18:30)
[2017-06-02] MEDS ORDERED: CEPH-460 PO (18:58)
--- NOTE | 2017-06-02 19:40 | RADRPT ---
EXAM DATE/TIME: 06/02/2017 19:08 [facility] COMPARISON: CT ABDOMEN & PELVIS W CONTRAST, July 26, 2014, 17:43. INDICATIONS : Lower abdomen pain,back pain,bilateral back pain,nausea,vomiting IV CONTRAST: 71 cc Omnipaque 350 (iohexol) IV ORAL CONTRAST: No oral contrast ingested. RADIATION DOSE: 12.09 CTDIvol (mGy) MEDICAL HISTORY : Hypertension. Asthma anemia SURGICAL HISTORY : section. ENCOUNTER: Initial ACUITY: 2 days PAIN SCALE: 7/10 LOCATION: Abdomen TECHNIQUE: Volumetric scanning of the abdomen and pelvis was performed. Using automated exposure control and ad justment of the mA and/or kV according to patient size, radiation dose was kept as low as reasonably achievable to obtain optimal diagnostic quality images. DICOM format image data is available electro nically for review and comparison. FINDINGS: LOWER LUNGS: The visualized lower lungs are clear. Chronic eventration of the right hemidiaphragm again noted. The re is a questionable draining vein in the right lung base suggesting a possible sequestration. No pne umonia seen. LIVER: Homogeneous density without lesion. There is no dilation of the biliary tree. No calcified gallston es. SPLEEN: Normal size without lesion. PANCREAS: Within normal limits. KIDNEYS: Normal in size and shape. There is no mass, stone or hydronephrosis. ADRENAL GLANDS: Within normal limits. VASCULAR: There is no aortic aneurysm. BOWEL/MESENTERY: The stomach, small bowel, and colon demonstrate no acute abnormality. There is no free intraperitone al air or fluid. Normal appendix. ABDOMINAL WALL: Within normal limits. RETROPERITONEUM: There is no lymphadenopathy. BLADDER: No wall thickening or mass. REPRODUCTIVE: 2.3 cm right ovarian cyst. No inflammatory changes are demonstrated. No free fluid. INGUINAL: There is no lymphadenopathy or hernia. MUSCULOSKELETAL: Within normal limits for patient age. CONCLUSION: 1. Small benign-appearing cyst of the right ovary without free fluid or perceptible inflammatory reza ges. 2. Otherwise negative study. The appendix is normal. 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 No associated pneumonia or other acute complication seen. Ismael Celis MD on June 02, 2017 at 19:32 Board Certified Radiologist. This report was verified electronically.
[2017-06-02] MEDS ORDERED: DOXY100C PO (20:00)
--- NOTE | 2017-06-02 20:15 | PD ---
Physical Exam Date Seen by Provider: Jun 02, 2017 Time Seen by Provider: 20:07 Narrative GENERAL: This is a well-nourished, well-developed patient, in no apparent distress. SKIN: No rashes, ecchymoses or lesions. Warm and dry. HEAD: Atraumatic. Normocephalic. EYES: PERRL, EOMI, no discharge or injection. No scleral icterus. EARS: Clear NOSE: Nasal turbinates appear normal. THROAT: Mucosa pink and moist. Airway patent. NECK: Trachea midline. supple, moves head freely. LUNGS: Clear to auscultation. CV: Regular in rhythm. ABDOMEN: Soft nontender. There is no guarding or rebound. No right lower quadrant tenderness on my exam. EXT: No clubbing cyanosis or edema. Data Data Last Documented VS Vital Signs Date Time Temp Pulse Resp B/P (MAP) Pulse Ox O2 Delivery O2 Flow Rate FiO2 06/02/17 15:53 98.4 86 16 162/95 (117) 97 Orders Orders Complete Blood Count With Diff (06/02/17 16:38) Comprehensive Metabolic Panel (06/02/17 16:38) Lipase (06/02/17 16:38) Urinalysis - C+S If Indicated (06/02/17 16:38) Iv Access Insert/Monitor (06/02/17 16:38) Ondansetron Inj (Zofran Inj) (06/02/17 16:45) Sodium Chlor 0.9% 1000 Ml Inj (Ns 1000 M (06/02/17 16:38) Sodium Chloride 0.9% Flush (Ns Flush) (06/02/17 16:45) Ketorolac Inj (Toradol Inj) (06/02/17 16:45) Ed Urine Pregnancytest Poc (06/02/17 16:38) Gc And Chlamydia Pcr (06/02/17 16:38) Wet Prep Profile (06/02/17 16:38) Ct Abd/Pel W Iv Contrast(Rout) (06/02/17 16:47) Urine Culture (06/02/17 16:55) Ceftriaxone Inj (Rocephin Inj) (06/02/17 18:30) Azithromycin Powd Pack (Zithromax Powd P (06/02/17 18:30) Iohexol 350 Inj (Omnipaque 350 Inj) (06/02/17 15:34) Ed Discharge Order (06/02/17 20:02) Labs Laboratory Tests Test 06/02/17 16:55 06/02/17 18:15 White Blood Count 4.9 TH/MM3 Red Blood Count 5.47 MIL/MM3 Hemoglobin 13.9 GM/DL Hematocrit 42.7 % Mean Corpuscular Volume 78.0 FL Mean Corpuscular Hemoglobin 25.3 PG Mean Corpuscular Hemoglobin Concent 32.5 % Red Cell Distribution Width 15.3 % Platelet Count 215 TH/MM3 Mean Platelet Volume 9.0 FL Neutrophils (%) (Auto) 38.8 % Lymphocytes (%) (Auto) 50.6 % Monocytes (%) (Auto) 6.9 % Eosinophils (%) (Auto) 2.8 % Basophils (%) (Auto) 0.9 % Neutrophils # (Auto) 1.9 TH/MM3 Lymphocytes # (Auto) 2.5 TH/MM3 Monocytes # (Auto) 0.3 TH/MM3 Eosinophils # (Auto) 0.1 TH/MM3 Basophils # (Auto) 0.0 TH/MM3 CBC Comment DIFF FINAL Differential Comment Urine Color YELLOW Urine Turbidity HAZY Urine pH 7.5 Urine Specific [place] 1.020 Urine Protein TRACE mg/dL Urine Glucose (UA) NEG mg/dL Urine Ketones TRACE mg/dL Urine Occult Blood NEG Urine Nitrite NEG Urine Bilirubin NEG Urine Urobilinogen 4.0 MG/DL Urine Leukocyte Esterase MOD Urine RBC 3 /hpf Urine WBC 28 /hpf Urine Squamous Epithelial Cells 14 /hpf Urine Renal Epithelial Cells 1 /hpf Urine Bacteria OCC /hpf Urine Mucus MOD /lpf Microscopic Urinalysis Comment CULTURE INDICATED Blood Urea Nitrogen 6 MG/DL Creatinine 0.78 MG/DL Random Glucose 78 MG/DL Total Protein 7.8 GM/DL Albumin 4.3 GM/DL Calcium Level 9.2 MG/DL Alkaline Phosphatase 73 U/L Aspartate Amino Transf (AST/SGOT) 22 U/L Alanine Aminotransferase (ALT/SGPT) 21 U/L Total Bilirubin 1.0 MG/DL Sodium Level 141 MEQ/L Potassium Level 3.7 MEQ/L Chloride Level 109 MEQ/L Carbon Dioxide Level 24.5 MEQ/L Anion Gap 8 MEQ/L Estimat Glomerular Filtration Rate 113 ML/MIN Lipase 142 U/L Clue Cells (Wet Prep) NONE SEEN Vaginal Trichomonas (Wet Prep) NONE SEEN Vaginal Yeast (Wet Prep) NONE SEEN MDM Medical Record Reviewed: Yes Supervised Visit with LEXX: Yes Interpretation(s) Laboratory Tests Test 06/02/17 16:55 06/02/17 18:15 White Blood Count 4.9 TH/MM3 Red Blood Count 5.47 MIL/MM3 Hemoglobin 13.9 GM/DL Hematocrit 42.7 % Mean Corpuscular Volume 78.0 FL Mean Corpuscular Hemoglobin 25.3 PG Mean Corpuscular Hemoglobin Concent 32.5 % Red Cell Distribution Width 15.3 % Platelet Count 215 TH/MM3 Mean Platelet Volume 9.0 FL Neutrophils (%) (Auto) 38.8 % Lymphocytes (%) (Auto) 50.6 % Monocytes (%) (Auto) 6.9 % Eosinophils (%) (Auto) 2.8 % Basophils (%) (Auto) 0.9 % Neutrophils # (Auto) 1.9 TH/MM3 Lymphocytes # (Auto) 2.5 TH/MM3 Monocytes # (Auto) 0.3 TH/MM3 Eosinophils # (Auto) 0.1 TH/MM3 Basophils # (Auto) 0.0 TH/MM3 CBC Comment DIFF FINAL Differential Comment Urine Color YELLOW Urine Turbidity HAZY Urine pH 7.5 Urine Specific [place] 1.020 Urine Protein TRACE mg/dL Urine Glucose (UA) NEG mg/dL Urine Ketones TRACE mg/dL Urine Occult Blood NEG Urine Nitrite NEG Urine Bilirubin NEG Urine Urobilinogen 4.0 MG/DL Urine Leukocyte Esterase MOD Urine RBC 3 /hpf Urine WBC 28 /hpf Urine Squamous Epithelial Cells 14 /hpf Urine Renal Epithelial Cells 1 /hpf Urine Bacteria OCC /hpf Urine Mucus MOD /lpf Microscopic Urinalysis Comment CULTURE INDICATED Blood Urea Nitrogen 6 MG/DL Creatinine 0.78 MG/DL Random Glucose 78 MG/DL Total Protein 7.8 GM/DL Albumin 4.3 GM/DL Calcium Level 9.2 MG/DL Alkaline Phosphatase 73 U/L Aspartate Amino Transf (AST/SGOT) 22 U/L Alanine Aminotransferase (ALT/SGPT) 21 U/L Total Bilirubin 1.0 MG/DL Sodium Level 141 MEQ/L Potassium Level 3.7 MEQ/L Chloride Level 109 MEQ/L Carbon Dioxide Level 24.5 MEQ/L Anion Gap 8 MEQ/L Estimat Glomerular Filtration Rate 113 ML/MIN Lipase 142 U/L Clue Cells (Wet Prep) NONE SEEN Vaginal Trichomonas (Wet Prep) NONE SEEN Vaginal Yeast (Wet Prep) NONE SEEN Last 24 hours Impressions Abdomen/Pelvis CT 06/02/17 1487 Signed Impressions: Service Date/Time: Friday, June 02, 2017 19:08 - CONCLUSION: 1. Small benign-appearing cyst of the right ovary without free fluid or perceptible inflammatory changes. 2. Otherwise negative study. The appendix is normal. 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 No associated pneumonia or other acute complication seen. Ismael Celis MD Differential Diagnosis MDM: High Differential diagnoses: Acute appendicitis, UTI, PID, colitis Narrative Course I have examined the patient. She has no abdominal pain or right lower quadrant pain. She is resting comfortable in examination room. She is smiling and laughing. I reviewed the patient's laboratory testing including her pelvic exam and CAT scan. I suspect this is a form of PID. The patient is given Zithromax and Rocephin here in the ER. She also has a urinary tract infection she is given a prescription for Keflex. I will add in doxycycline. This is PID, UTI Diagnosis Primary Impression: PID Additional Impression: UTI Patient Instructions: General Instructions Departure Forms: Tests/Procedures Additional Instruction: Rest. force fluids. Medications as directed. Follow-up with a medical doctor in 3-5 days. Return to the ER if any problems or worsening symptoms. Med/Other Pt SpecificInfo: Prescription(s) given Scripts Doxycycline Hyclate (Doxycycline Hyclate) 100 Mg Cap 100 MG PO BID for Infection, #20 CAP 0 Refills Prov: Kenneth Brown MD 06/02/17 Cephalexin (Keflex) 500 Mg Cap 500 MG PO Q12H for Infection for 7 Days, #14 CAP 0 Refills Prov: Jeanna Guzman 06/02/17 Disposition: 01 DISCHARGE HOME Condition: Stable Sanket Barden Jun 02, 2017 20:15
== END 2017-06-02 20:25 | disposition home or self-care (01) ==
LOC: NEPD 15:33
DX: N72 Inflammatory disease of cervix uteri (principal); N73.9 Female pelvic inflammatory disease, unspecified; N39.0 Urinary tract infection, site not specified; M54.9 Dorsalgia, unspecified; R11.2 Nausea with vomiting, unspecified; J45.909 Unspecified asthma, uncomplicated; I10 Essential (primary) hypertension
CPT/HCPCS: 74177; 80053; 81001; 83690; 84703; 85025; 87086; 87210; 87491; 87591; 96361; 96365; 96375; 99284; J0696; J1885; J2405; J7030; Q9967

== ENCOUNTER 2017-06-29 08:00 | Emergency (ER) | payer OTHER ==
[~2017-06-29] VITALS: Ht 160 cm; Wt 98.0 kg
[~2017-06-29 08:00] MED LIST changes: +DOXY100C PO
[2017-06-29 08:02] VITALS: BP 146/75; PULSE 112; RESP 17; TEMP 98.9; O2SAT 98
[2017-06-29] MEDS ORDERED: RESP: ALBUTEROL 2.5 MG/IPRATROPIUM 0.5 MG NEB (SCH) INH ONE (08:30)
[2017-06-29] MEDS ORDERED: ACETAMINOPHEN 500 MG CPLT PO ONE (08:30)
[2017-06-29] MEDS ORDERED: IBUPROFEN 600 MG TAB PO ONE (08:30)
[2017-06-29 08:43] LABS: BILIRUBIN, URINE NEG (NEG); BLOOD, URINE NEG (NEG); GLUCOSE,URINE 100 mg/dL (NEG); KETONE, URINE NEG (NEG); NITRITE,URINE NEG (NEG); PH, URINE 7.5 (5.0-8.5); URINE COLOR YELLOW (YELLW/STRAW); URINE LEUKOCYTE ESTERASE SMALL (NEG)
[2017-06-29 08:49] LABS: AMORPHOUS SEDIMENT, URINE RARE; BACTERIA, URINE RARE /hpf; MUCUS URINE FEW /lpf (OCC); SQUAMOUS EPITHELIAL CELL URINE 12 /hpf (0-5); TRICHOMONAS, URINE RARE
[2017-06-29] MEDS ORDERED: LIDOCAINE HCL 1% 50 ML VIAL IM ONE (09:00)
[2017-06-29] MEDS ORDERED: LIDOCAINE HCL 1% 20 ML VIAL ONE (09:06)
[2017-06-29] MEDS ORDERED: CEPH-460 PO (09:20)
--- NOTE | 2017-06-29 09:23 | PD ---
HPI Chief Complaint: Musculoskeletal Complaint Time Seen by Provider: 08:07 Travel History International Travel<30 days: No Contact w/Intl Traveler<30days: No Traveled to known affect area: No History of Present Illness HPI 21-year-old female presents emergency department with complaints of bilateral lower extremity pain, and abdominal pain from the umbilicus down. She denies dysuria, flank pain, nausea, vomiting, or diarrhea. Patient denies vaginal symptoms of any kind. Patient does have a mild cough, and states she suffers from asthma for which she only uses albuterol normally. She states she has been more congested in her chest in the last 4 days. She denies productive cough. She states she woke up last evening with her abdominal and lower extremity pain. She denies significant fever. Pain is 6 out of 10. It is generalized in nature. She has no known drug allergies. PFSH Past Medical History Hx Anticoagulant Therapy: No Anemia: Yes Asthma: Yes Cardiovascular Problems: Yes (HTN) Chemotherapy: No Cerebrovascular Accident: No Developmental Delay: No Diabetes: No Diminished Hearing: No Gastrointestinal Disorders: No Genitourinary: No Hypertension: Yes Musculoskeletal: No Neurologic: No Psychiatric: No Respiratory: Yes (asthma) Immunizations Current: Yes Sickle Cell Disease: No Sleep Apnea: No PNEUMOCCOCAL Vaccine (Year): 1 ?: Unknown : 4 Para: 3 Miscarriage: 0 : 0 Past Surgical History Section: Yes (x2) Gynecologic Surgery: Yes ( JULY 2012) Hysterectomy: No Social History Alcohol Use: No Tobacco Use: No Substance Use: No Allergies-Medications (Allergen,Severity, Reaction): Coded Allergies: No Known Allergies (Verified Allergy, Unknown, 06/02/17) Reported Meds & Prescriptions Reported Meds & Active Scripts Active Ventolin Hfa 18 GM Inh (Albuterol Sulfate) 90 Mcg/Act Aer 2 Puff INH Q4-6H PRN Azithromycin 500 Mg Tab 500 Mg PO DAILY Keflex (Cephalexin) 500 Mg Cap 500 Mg PO Q8H 7 Days Doxycycline Hyclate 100 Mg Cap 100 Mg PO BID Keflex (Cephalexin) 500 Mg Cap 500 Mg PO Q12H 7 Days Review of Systems Except as stated in HPI: all other systems reviewed are Neg General / Constitutional: No: Fever Eyes: No: Visual changes HENT: No: Headaches Cardiovascular: No: Chest Pain or Discomfort Respiratory: Positive: Cough, Shortness of Breath, Wheezing, No: Sneezing, Orthopnea, Hemoptysis, Night Sweats, Pleuritic Pain Gastrointestinal: Positive: Abdominal Pain, No: Nausea, Vomiting, Diarrhea, Constipation, Loss of Appetite Genitourinary: Positive: Urgency, Frequency, Pelvic Pain, No: Dysuria, Flank Pain Musculoskeletal: Positive: Myalgias, No: Arthralgias, Limited ROM, Edema, Pain Skin: No Rash Neurologic: No: Weakness Psychiatric: No: Depression Endocrine: No: Polydipsia Hematologic/Lymphatic: No: Easy Bruising Physical Exam Narrative GENERAL: Patient appears mildly ill but not septic SKIN: Warm and dry. Normal color. Normal turgor. HEAD: Atraumatic. Normocephalic. EYES: Pupils equal and round. No scleral icterus. No injection or drainage. ENT: No nasal bleeding or discharge. Mucous membranes pink and moist. Pharynx is clear. Airways patent. No sinus tenderness. TMs are clear. NECK: Trachea midline. Supple nontender CARDIOVASCULAR: Regular rate and rhythm. RESPIRATORY: No accessory muscle use. Diffuse wheezes throughout to auscultation. Breath sounds equal bilaterally. GASTROINTESTINAL: Abdomen soft, mild to moderate non-distinct lower abdominal tenderness, nondistended. No CVA tenderness. Hepatic and splenic margins not palpable. MUSCULOSKELETAL: Extremities without clubbing, cyanosis, or edema. No obvious deformities. NEUROLOGICAL: Awake and alert. No obvious cranial nerve deficits. Motor grossly within normal limits. Five out of 5 muscle strength in the arms and legs. Normal speech. PSYCHIATRIC: Appropriate mood and affect; insight and judgment normal. Data Data Last Documented VS Vital Signs Date Time Temp Pulse Resp B/P (MAP) Pulse Ox O2 Delivery O2 Flow Rate FiO2 06/29/17 08:02 98.9 112 17 146/75 (98) 98 Orders Orders Urinalysis - C+S If Indicated (06/29/17 08:17) Ed Urine Pregnancytest Poc (06/29/17 08:17) Chest, Single Ap (06/29/17 08:17) Albuterol-Ipratropium Neb (Duoneb Neb) (06/29/17 08:30) Influenzae A/B Antigen (06/29/17 08:17) Acetaminophen (Tylenol) (06/29/17 08:30) Ibuprofen (Motrin) (06/29/17 08:30) Urine Culture (06/29/17 08:25) Lidocaine 1% Inj (50 Ml) (Xylocaine 1% I (06/29/17 09:00) Ceftriaxone Inj (Rocephin Inj) (06/29/17 09:00) Lidocaine 1% Inj (Xylocaine 1% Inj) (06/29/17 09:06) Azithromycin (Zithromax) (06/29/17 09:30) Labs Laboratory Tests Test 06/29/17 08:25 Urine Color YELLOW Urine Turbidity SLIGHTY CLOUDY Urine pH 7.5 Urine Specific [place] 1.025 Urine Protein 30 mg/dL Urine Glucose (UA) 100 mg/dL Urine Ketones NEG mg/dL Urine Occult Blood NEG Urine Nitrite NEG Urine Bilirubin NEG Urine Urobilinogen 4.0 MG/DL Urine Leukocyte Esterase SMALL Urine RBC 4 /hpf Urine WBC 21 /hpf Urine Squamous Epithelial Cells 12 /hpf Urine Amorphous Sediment RARE Urine Bacteria RARE /hpf Urine Mucus FEW /lpf Urine Trichomonas RARE Microscopic Urinalysis Comment CULTURE INDICATED MDM Medical Decision Making Medical Screen Exam Complete: Yes Emergency Medical Condition: Yes Differential Diagnosis UTI. Asthma. Pneumonia. Influenza. Narrative Course Patient is medically stable at time of exam. Urinalysis is collected. Dual nebs ordered Chest x-ray is ordered. Rapid influenza is ordered. Rapid influenza is negative. Urinalysis is grossly positive for UTI. Urine culture is placed. Chest x-ray shows right lower lobe infiltrate Patient is given 1000 mg Rocephin IM. Patient is given azithromycin 500 mg p.o. Patient continued on azithromycin 500 mg daily for the next 3 days. Patient is continued on Keflex 500 mg 3 times daily for 7 days. Refill of her albuterol metered-dose inhaler was given. Patient to follow-up with a local primary care physician. Work note for today and tomorrow was given. Diagnosis Primary Impression: UTI (urinary tract infection) Qualified Codes: N30.00 - Acute cystitis without hematuria Additional Impressions: Pneumonia Qualified Codes: J18.1 - Lobar pneumonia, unspecified organism Asthma exacerbation, mild Patient Instructions: Acute Bronchitis (ED), Dysuria (ED), General Instructions Departure Forms: Work Release Enter return to work date: July 01, 2017 Additional Instructions: Rapid influenza is negative. Urinalysis is grossly positive for UTI. Urine culture is placed. Chest x-ray shows right lower lobe infiltrate Patient is given 1000 mg Rocephin IM. Patient is given azithromycin 500 mg p.o. Patient continued on azithromycin 500 mg daily for the next 3 days. Patient is continued on Keflex 500 mg 3 times daily for 7 days. Refill of her albuterol metered-dose inhaler was given. Patient to follow-up with a local primary care physician. Work note for today and tomorrow was given. Med/Other Pt SpecificInfo: Prescription(s) given Scripts Albuterol 18 GM Inh (Ventolin Hfa 18 GM Inh) 90 Mcg/Act Aer 2 PUFF INH Q4-6H Y for SHORTNESS OF BREATH, #1 INHALER 0 Refills Prov: Callie Bahena DO 06/29/17 Azithromycin (Azithromycin) 500 Mg Tab 500 MG PO DAILY for Infection, #3 TAB 0 Refills Prov: Callie Bahena DO 06/29/17 Cephalexin (Keflex) 500 Mg Cap 500 MG PO Q8H for Infection for 7 Days, #21 CAP 0 Refills Prov: Callie Bahena DO 06/29/17 Disposition: 01 DISCHARGE HOME Condition: Stable Humble Mccrary June 29, 2017 09:23
[2017-06-29] MEDS ORDERED: AZITHROMYCIN 250 MG TAB PO ONE (09:30)
[2017-06-29] MEDS ORDERED: AZIT500T2 PO (09:34)
[2017-06-29] MEDS ORDERED: VENTAER INH (09:34)
--- NOTE | 2017-06-29 10:11 | RADRPT ---
EXAM DATE: 06/29/2017 9:20 AM EDT AGE/SEX: 21 years / Female INDICATIONS: Wheezing. CLINICAL DATA: This is the patient's initial encounter. Patient reports that signs and symptoms have been present for 1 day and indicates a pain score of 0/10. MEDICAL/SURGICAL HISTORY: Hypertension. Asthma. section. COMPARISON: [facility] [place], CHEST PA & LAT, 12/22/2015. . FINDINGS: No new focal pleural or parenchymal opacities. Stable posterior eventration of the right h emidiaphragm. Cardiomediastinal contours are stable. Bony thorax is intact. CONCLUSION: No acute cardiopulmonary disease. Electronically signed by: Dez Sheffield MD 06/29/2017 10:09 AM EDT
== END 2017-06-29 10:15 | disposition home or self-care (01) ==
LOC: NEPD 08:00
DX: N30.00 Acute cystitis without hematuria (principal); J45.901 Unspecified asthma with (acute) exacerbation; J18.1 Lobar pneumonia, unspecified organism
CPT/HCPCS: 71045; 81001; 84703; 87086; 87804; 94664; 96372; 99284; J0696